=== PATIENT | male | born 1975 | race Caucasian/White ===

== ENCOUNTER 2017-11-02 10:36 | Day surgery (SDC) | payer OTHER ==
[2017-11-01 12:48] VITALS: BMI 32.7
[2017-11-02] MEDS ORDERED: Oxymetazoline HCl 0.05% ( 15 ML ) ONE ×2 (11:11→13:10)
[2017-11-02] MEDS ORDERED: Fentanyl 250 MCG/5 ML VIAL ONE (12:28)
[2017-11-02] MEDS ORDERED: Lidocaine 1% w/Epinephrine 1:100K 30 ML VIAL ONE (13:10)
[2017-11-02] MEDS ORDERED: Bacitracin Zinc Ointment 30 gm TUBE ONE (13:10)
[2017-11-02] MEDS ORDERED: Midazolam HCl 2 mg/2 ml Vial ONE (13:20)
--- NOTE | 2017-11-02 13:26 | EKG ---
Test Reason : PREOP Blood Pressure : / mmHG Vent. Rate : 073 BPM Atrial Rate : 073 BPM P-R Int : 134 ms QRS Dur : 104 ms QT Int : 386 ms P-R-T Axes : 015 037 039 degrees QTc Int : 425 ms Normal sinus rhythm Normal ECG No previous ECGs available Confirmed by DANIELLE ELLIS ([id number]) on 11/02/2017 1:25:56 PM Referred By: KEVIN Confirmed By:DANIELLE ELLIS
[2017-11-02] MEDS ORDERED: Succinylcholine Chloride 20 MG/ML 10 ml SYRINGE FS ONE (13:40)
[2017-11-02] MEDS ORDERED: Lidocaine 1% PF 5 ML VIAL ONE (13:40)
[2017-11-02] MEDS ORDERED: PROPOFOL 200 MG/20 ML VIAL ONE (13:40)
[2017-11-02] MEDS ORDERED: Dexamethasone 20 MG/5 ML VIAL ONE (13:40)
[2017-11-02] MEDS ORDERED: Ondansetron HCl/PF 4 MG/2 ML Vial ONE (13:40)
[2017-11-02] MEDS ORDERED: methylPREDNISolone Acetate 40 mg/ml Vial ONE (13:43)
[2017-11-02] MEDS ORDERED: Fentanyl 100 MCG/2 ML VIAL ONE ×2 (14:31→14:47)
[2017-11-02] MEDS ORDERED: Hydrocodone-Acetamin 15 ML UDCUP ONE (15:46)
--- NOTE | 2017-11-02 20:46 | OP ---
PREOPERATIVE DIAGNOSES: 1. Chronic rhinosinusitis. 2. Nasal polyposis. 3. Allergic fungal sinusitis. 4. Bilateral inferior turbinate hypertrophy. 5. Chronic adenotonsillitis. 6. Adenotonsillar hypertrophy. POSTOPERATIVE DIAGNOSES: 1. Chronic rhinosinusitis. 2. Nasal polyposis. 3. Allergic fungal sinusitis. 4. Bilateral inferior turbinate hypertrophy. 5. Chronic adenotonsillitis. 6. Adenotonsillar hypertrophy. PROCEDURES: 1. Bilateral endoscopic sinus surgery, total ethmoidectomies. 2. Bilateral endoscopic sinus surgery, frontal sinusotomy. 3. Bilateral nasal polypectomy, endoscopic sinus surgery. 4. Bilateral inferior turbinate submucosal resection. 5. Tonsillectomy and adenoidectomy. SURGEON: Constantine Cronin M.D. ESTIMATED BLOOD LOSS: 20 mL COMPLICATIONS: None. ANESTHESIA: GETA. PROCEDURE IN DETAIL: After consent was obtained, the patient was identified, brought to the operatin g room, and placed on the operating table in the supine position. General endotracheal anesthesia an d intravenous access was obtained and we proceeded with positioning the patient for oropharyngeal neela sandoval. Oropharyngeal exposure was obtained with a Taty-Stephen mouth gag after a head drape was placed and secured with a towel clip. The Taty-Stephen mouth gag was then suspended from the Calvert tray and palatal elevation was achieved with a red rubber catheter. The right tonsil was addressed first. We used a curved Allis to grasp the tonsil and retract it medially as an anterior pillar incision was m behzad. The retrotonsillar fascial plane was then established and blunt dissection was performed with t he suction cautery. Blood vessels were anticipated, identified, and cauterized as they were encounte red. Ultimately, dissection was carried to the posterior tonsillar pillar mucosa which was incised h emostatically, as well as the base of tongue connection. The tonsil was then passed off as a specime n and bleeding points within the tonsillar bed were cauterized under direct visualization. We subseq uently turned our attention to the contralateral side, where using a similar technique, a near identi aman procedure was performed. Again, the tonsil was grasped and retracted medially with a curved Pj s. The retrotonsillar fascial plane was established and while the anterior pillar was retracted medi ally, the hemostatic blunt dissection of the tonsil with a suction cautery was performed with blood v essels anticipated, identified, and cauterized as they were encountered. Again, dissection continued to the base of tongue and posterior tonsillar pillar mucosa which was incised in a hemostatic fashio n. The tonsillar beds were then carefully inspected and bleeding points were identified and cauteriz ed with a suction cautery. After this portion of the procedure, hemostasis was completely obtained. Under direct mirror visualization, we visualized the adenoid pad. Under direct mirror visualization, we removed the bulk of the adenoid tissue with the adenoid curette. We then packed the nasopharynx for an appropriate period of time with Aquilino-Synephrine saturated tonsillar sponges. After a period of observation, we removed the pack. Under indirect mirror visualization, we obtained hemostasis and v aporization of residual adenoid tissue with electrocautery. The patient's oral cavity was copiously irrigated with iced saline and subsequently suctioned. After completion of the procedure, the nasal cavity and oropharynx were irrigated and suctioned as were the gastric contents. The patient was the n awakened and transferred to the recovery room where the patient remained in stable condition prior to discharge to Day Stay. Following this, the patient was placed in the beach chair position. Afrin pledgets were then placed in the nasal cavities as the patient was prepped and draped for standard nasal procedure. Following this, Afrin pledgets were removed. The 0 degree scope was advanced in the nasal cavity. There was p revious maxillary antrostomies that were very wide antrostomies. There were nasal polyps protruding bilaterally and partially obstructing this area. This was removed using the 0 degree microdebrider. Inside the left maxillary sinus, there was thick fungal debris which was removed using curved suctio n. Following this, the ethmoidal bulla was still present and it was punctured on its medial and infe rior aspect bilaterally with the microdebrider and was removed. The grand lamella was then identifie d. It was noted to be intact bilaterally and it was punctured into the posterior ethmoidal cells, bl unt ended microdebrider. Following this, working from posterior to anterior, the ethmoidal cells wer e opened in a mucosal-sparing technique. Following this, a 45-degree scope and the curved microdebri heather were used to open the frontal sinus ostia bilaterally. Following this, the inferior turbinates w ere then punctured on their medial and inferior aspect and submucosal resection was performed on the anterior inferior aspect of the inferior turbinates bilaterally. MeroGel packs were placed in the na marques cavity. The patient tolerated the procedure well.
== END 2017-11-02 16:20 | disposition home or self-care (01) ==
LOC: SDC 10:36
PROVIDERS: ATTEND Otolaryngology Plastic Surgery within the Head & Neck
PROC: 09TU8ZZ Resection of Right Ethmoid Sinus, Via Natural or Artificial Opening Endoscopic (ICD-10-PCS; principal; 2017-11-02)
PROC: 0CTQXZZ Resection of Adenoids, External Approach (ICD-10-PCS; principal; 2017-11-02)
PROC: 0CTPXZZ Resection of Tonsils, External Approach (ICD-10-PCS; principal; 2017-11-02)
PROC: 09TV8ZZ Resection of Left Ethmoid Sinus, Via Natural or Artificial Opening Endoscopic (ICD-10-PCS; principal; 2017-11-02)
PROC: 09TL8ZZ Resection of Nasal Turbinate, Via Natural or Artificial Opening Endoscopic (ICD-10-PCS; principal; 2017-11-02)
PROC: 09BV8ZZ Excision of Left Ethmoid Sinus, Via Natural or Artificial Opening Endoscopic (ICD-10-PCS; principal; 2017-11-02)
PROC: 099T8ZZ Drainage of Left Frontal Sinus, Via Natural or Artificial Opening Endoscopic (ICD-10-PCS; principal; 2017-11-02)
PROC: 09BU8ZZ Excision of Right Ethmoid Sinus, Via Natural or Artificial Opening Endoscopic (ICD-10-PCS; principal; 2017-11-02)
PROC: 099S8ZZ Drainage of Right Frontal Sinus, Via Natural or Artificial Opening Endoscopic (ICD-10-PCS; principal; 2017-11-02)
DX: J35.03 Chronic tonsillitis and adenoiditis (principal); J32.0 Chronic maxillary sinusitis; J33.9 Nasal polyp, unspecified; J30.89 Other allergic rhinitis; J34.3 Hypertrophy of nasal turbinates; I10 Essential (primary) hypertension; Z88.0 Allergy status to penicillin; Z88.6 Allergy status to analgesic agent; Z79.82 Long term (current) use of aspirin; Z79.899 Other long term (current) drug therapy
CPT/HCPCS: 88304; 93005; 93010; 96374; J0131; J1030; J1100; J2001; J2250; J2405; J2704; J3010